=== PATIENT | female | born 1970 | race Caucasian/White ===

== ENCOUNTER 2023-02-07 13:52 | Emergency (ER) | payer OTHER ==
[~2023-02-07] VITALS: Ht 157.5 cm; Wt 65.8 kg
--- NOTE | 2023-02-07 14:26 | NUR ---
AMB. TO CHAIR W NO DISTRESS.
[2023-02-07 14:27] VITALS: BP 125/83
[2023-02-07] MEDS ORDERED: ETHYL CHLORIDE 105 ML SPR TP ONE ×2 (14:40→14:45)
--- NOTE | 2023-02-07 14:49 | NUR ---
SEEN BY MALU BARILLAS FOR LANCING OF BLISTER
[2023-02-07] MEDS ORDERED: SULF-58 PO (14:56)
--- NOTE | 2023-02-07 15:48 | NUR ---
Patient discharged with v/s stable. Written and verbal after care instructions given and explained. Patient verbalized understanding. Ambulatory with steady gait. All questions addressed prior to discharge. Advised to follow up with PMD.
[2023-02-07 15:49] VITALS: BP 125/83
== END 2023-02-07 15:49 | disposition home or self-care (01) ==
LOC: MED 13:52
DX: L08.9 Local infection of the skin and subcutaneous tissue, unspecified (principal); E11.65 Type 2 diabetes mellitus with hyperglycemia; Z79.899 Other long term (current) drug therapy
CPT/HCPCS: 90471; 90715; 99283